=== PATIENT | male | born 1980 | race Caucasian/White ===

== ENCOUNTER 2020-11-19 11:37 | Emergency (ER) | payer MEDICAID ==
[~2020-11-19] VITALS: Ht 157.5 cm; Wt 88.0 kg
[2020-11-19 11:58] VITALS: BP 140/94; Ht 157.5 cm; Wt 88.0 kg
== END 2020-11-19 13:23 | disposition home or self-care (01) ==
LOC: ED 11:37
DX: T78.40XA Allergy, unspecified, initial encounter (principal); X58.XXXA Exposure to other specified factors, initial encounter

== ENCOUNTER 2020-11-25 22:22 | Emergency (ER) | payer MEDICAID ==
[~2020-11-25] VITALS: Ht 157.5 cm; Wt 87.1 kg
[2020-11-25 22:35] VITALS: BP 162/99
== END 2020-11-26 03:48 | disposition left against medical advice (07) ==
LOC: ED 22:22
DX: Z53.21 Procedure and treatment not carried out due to patient leaving prior to being seen by health care provider (principal)